=== PATIENT | male | born 1960 | race Caucasian/White ===

== ENCOUNTER → 2019-08-07 13:58 | Outpatient (CLI) | payer SELFPAY ==
[2019-08-10 10:25] LABS: Hepatitis C Antibody Non-Reactive (Nonreactive)
== END ==
PROVIDERS: PCP Family Medicine; Referring Provider Physician Assistant Medical; Visit Provider Physician Assistant Medical
DX: L43.8 Other lichen planus (principal)
CPT/HCPCS: 36415; 86803